=== PATIENT | female | born 1985 | race Asian ===

== ENCOUNTER 2019-07-29 22:02 | Emergency (ER) | payer OTHER ==
[~2019-07-29] VITALS: Ht 152.4 cm; Wt 56.7 kg
[2019-07-29 22:03] VITALS: BP 164/88
--- NOTE | 2019-07-29 22:04 | NUR ---
PT C/O OF NEEDLE STICK. PT IS ALERT AND ABLE TO ANSWER QUESTIONS APPROPRIATELY. PT HAS NO PAIN AT THIS TIME. NO BLEEDING AT THIS TIME. PT WAS ABLE TO DO NEDLE STICK PROTOCOL PER [facility]. ERMD MADE AWARE, SAFETY MEASURES IN PLACE.
--- NOTE | 2019-07-29 22:40 | NUR ---
Dr. Diamond examining patient.
--- NOTE | 2019-07-29 23:18 | NUR ---
Patient discharged with v/s stable. Written and verbal after care instructions given and explained. Patient verbalized understanding. Ambulatory with steady gait. All questions addressed prior to discharge. Advised to follow up with PMD. Addendum: 07/30/19 at 0437 by EVELIA REBECCA SALDANA TO CONTINUE TO WORK.
[2019-07-30 04:33] VITALS: BP 130/66
[2019-07-31 06:07] LABS: HEPATITIS B CORE AB TOTAL Negative (Negative); HEPATITIS B SURFACE ANTIBODY Reactive (.); HEPATITIS B SURFACE ANTIGEN Negative (Negative); HEPATITIS C VIRUS ANTIBODY <0.1 s/co ratio (0.0-0.9)
== END 2019-07-29 23:18 | disposition home or self-care (01) ==
LOC: MED 22:02
DX: S60.450A Superficial foreign body of right index finger, initial encounter (principal); I10 Essential (primary) hypertension; Z88.8 Allergy status to other drugs, medicaments and biological substances; W46.0XXA Contact with hypodermic needle, initial encounter; Y93.89 Activity, other specified; Y92.89 Other specified places as the place of occurrence of the external cause; Y99.8 Other external cause status
CPT/HCPCS: 36415; 86702; 86704; 86706; 86803; 87340; 99283